=== PATIENT | female | born 1990 | race African-American/Black ===

== ENCOUNTER 2021-03-02 16:08 | Outpatient (CLI) | payer OTHER ==
--- NOTE | 2021-03-03 09:24 | Ultrasound Report ---
PROCEDURE: OB First Trimester INDICATIONS: positive test OUTSIDE/PRIOR DATING DATA: Last menstrual period (LMP): 12/12/2020. LMP-based estimated date of delivery (KANIKA): 09/18/2021. First dating scan (date and location): 03/02/2021. Estimated date of delivery (KANIKA) from first dating scan: 09/15/2021. The below data below was generated using the ultrasound KANIKA of 09/15/2021 TECHNIQUE: Real-time scanning was performed of the fetus and maternal pelvic organs, with image documentation. COMPARISON: None FINDINGS: Embryo: Single living intrauterine gestation with estimated sonographic gestational age of approxima tely 11 weeks and 6 days based off crown-rump length measurement of 5.15 cm. Normal yolk sac. No mily gestational hemorrhage. Heart rate: heart rate measured 157 bpm. Measurement variability in dating: +/- 4 weeks by LMP, +/- 7 days by mean sac diameter (use before 6 weeks gestation if crown-rump length not able to be measured), +/- 5 days by crown-rump length (6-12 weeks gestation). Maternal organs: Ovaries are unremarkable with incidentally noted right corpus luteal cyst. Maternal cervix appears unremarkable measuring 3.6 cm in length. IMPRESSION: Single living intrauterine gestation with estimated sonographic gestational age of approximately 11 w eeks and 6 days based off crown-rump length measurements. Estimated date of delivery is approximately 09/15/2021. Recommend continued clinical surveillance and routine second trimester anatomic screening surve y. Reviewed by: Kevin Matta MD on 03/03/2021 9:23 AM PST Approved by: Kevin Matta MD on 03/03/2021 9:23 AM PST Station ID: [id number]
== END 2021-03-02 16:09 | disposition home or self-care (01) ==
LOC: DI 16:08
PROVIDERS: ATTEND Obstetrics & Gynecology
DX: Z32.01 Encounter for pregnancy test, result positive (principal)

== ENCOUNTER 2021-03-11 13:21 | Outpatient (CLI) | payer OTHER | END 2021-03-11 13:22 | disposition home or self-care (01) | LOC: LAB.N 13:21 | PROVIDERS: ATTEND Nurse Practitioner Obstetrics & Gynecology | DX: Z36.8A Encounter for antenatal screening for other genetic defects (principal); Z36.89 Encounter for other specified antenatal screening | CPT/HCPCS: 36415; 81511; 87086 ==

== ENCOUNTER 2021-03-30 08:17 | Outpatient (CLI) | payer OTHER ==
[2021-04-01 12:37] LABS: AFP MOM 1.13; AGE RISK DOWN SYNDROME 1 IN 443; CALC'D GESTATIONAL AGE 15.4 weeks; CIGARETTE SMOKER? NOT GIVEN; DONOR AGE: EGG RETRIEVAL NOT GIVEN; DONOR EGG NO; ESTRIOL MOM 1.74; HCG MOM 0.65; HX OF NEURAL TUBE DEFECTS NO; INHIBIN A MOM 1.08; INSULIN DEPEND DIABETIC NO; MATERNAL WEIGHT 211 lbs; MSS DOWN SYNDROME RISK <1 IN 5000; MSS3 TRISOMY 18 RISK <1 IN 5000; NUMBER OF FETUSES 1; PREV PREGNANCY DOWN SYND NO; RISK FOR ONTD <1 IN 5000
== END 2021-03-30 08:18 | disposition home or self-care (01) ==
LOC: LAB.N 08:17
PROVIDERS: ATTEND Nurse Practitioner Obstetrics & Gynecology
DX: Z36.89 Encounter for other specified antenatal screening (principal)
CPT/HCPCS: 81511

== ENCOUNTER 2021-04-20 12:54 | Outpatient (CLI) | payer OTHER ==
[2021-04-20 19:30] LABS: BASOPHILS % (AUTO) 0.2 %; EOSINOPHILS # (AUTO) 0.1 10^3/uL (0.0-0.7); EOSINOPHILS % (AUTO) 1.5 %; HCT - HEMATOCRIT 38.5 % (37.0-47.0); HGB - HEMOGLOBIN 12.8 g/dL (12.0-16.0); LYMPHOCYTES # (AUTO) 1.6 10^3/uL (1.5-3.5); LYMPHOCYTES % (AUTO) 19.5 %; MEAN CORPUSCULAR HEMOGLOBIN 31.8 pg (27.0-31.0); MEAN CORPUSCULAR HGB CONC 33.2 g/dL (32.0-36.0); MEAN CORPUSCULAR VOLUME 95.8 fL (81.0-99.0); MEAN PLATELET VOLUME 11.8 fL (7.9-10.8); MONOCYTES # (AUTO) 0.5 10^3/uL (0.0-1.0); MONOCYTES % (AUTO) 6.2 %; NEUTROPHILS # (AUTO) 5.8 10^3/uL (1.5-6.6); PLT - PLATELET COUNT 178 10^3/uL (130-450); RED BLOOD COUNT 4.02 10^6/uL (4.20-5.40); WHITE BLOOD COUNT 8.1 x10^3/uL (4.8-10.8)
[2021-04-21 10:32] LABS: HEPATITIS B SURFACE ANTIGEN NON-REACTIVE (NON-REACTIVE)
[2021-04-21 10:37] LABS: HEPATITIS C ANTIBODY NON-REACTIVE (NON-REACTIVE)
[2021-04-21 13:46] LABS: HIV AG/AB 4TH GEN NON-REACTIVE (NON-REACTIVE)
== END 2021-04-20 12:55 | disposition home or self-care (01) ==
LOC: LAB.N 12:54
PROVIDERS: ATTEND Obstetrics & Gynecology
DX: Z36.89 Encounter for other specified antenatal screening (principal)
CPT/HCPCS: 36415; 85025; 86592; 86762; 86787; 86803; 86850; 86900; 86901; 87340; 87389

== ENCOUNTER 2021-05-04 15:29 | Outpatient (CLI) | payer OTHER ==
--- NOTE | 2021-05-05 10:22 | Ultrasound Report ---
PROCEDURE: OB Detailed Eval INDICATIONS: SUPERVISION OF NORMAL OUTSIDE/PRIOR DATING DATA: Last menstrual period (LMP): 12/12/2020. LMP-based estimated date of delivery (KANIKA): 09/18/2021. First dating scan (date and location): 02/28. Estimated date of delivery (KANIKA) from first dating scan: 09/15/2021. The below data below was generated using the ultrasound KANIKA of 09/15/2021 TECHNIQUE: Real-time scanning was performed of the fetus, with image documentation and biometric measurements. Endovaginal scanning: Performed COMPARISON: None. FINDINGS: General: A single living intrauterine gestation is present. Presentation: Breech Placenta: Placental position is anterior, without previa. Amniotic fluid index: 19.7 cm, normal 5-24 cm. Largest amniotic fluid pocket 6.3 cm. heart rate: 135 beats per minute. Maternal cervical canal: Closed and 4.2 cm long; normal length is 2.5 cm or more. biometrics: Biparietal diameter: 20 weeks 3 days Head circumference: 20 weeks 6 days Abdominal circumference: 21 weeks 5 days Femur length: 21 weeks 3 days Estimated gestational age from initial scan: 20 weeks 6 days. Composite gestational age from present scan: 21 weeks 1 day Estimated weight and percentile: 4295 g; 80th percentile Measurement variability in biometric dating: +/- 10 days from 12-20 weeks gestation, +/- 2 weeks from 20-30 weeks gestation, +/- 3 weeks at 30 weeks gestation or later. Anatomic survey: Neuro: Ventricles are normal at less than 10 mm. Cisterna magna is normal at 3-11 mm. Cerebellum i s normal in size and morphology. Nuchal skin fold: Normal at less than 6 mm between 14 and 20 weeks gestational age. Face: Nose and lips, facial profile are normal. Spine: Not well seen due to position. Heart: 4-chambered heart is present, with normal ventricular outflow tracts. Diaphragm: Diaphragm is intact. Stomach: Left-sided stomach is present. Kidneys: No hydronephrosis. Normal is less than 5 mm in 2nd trimester, less than 7 mm in 3rd trimester. Cord: 3 vessel cord has orthotopic insertion. Bladder: Normal in size. Extremities: Upper extremities well visualized. feet poorly visualized due to position.. IMPRESSION: 1. Single living intrauterine with appropriate interval growth. 2. Poor visualization of the spine and feet due to position. Otherwise, normal karla omic survey. Reviewed by: Jesenia Kimble MD, PhD on 05/05/2021 10:20 AM [facility] Approved by: Jesenia Kimble MD, PhD on 05/05/2021 10:20 AM [facility] Station ID: [id number]
== END 2021-05-04 15:30 | disposition home or self-care (01) ==
LOC: DI 15:29
PROVIDERS: ATTEND Nurse Practitioner Obstetrics & Gynecology
DX: Z34.92 Encounter for supervision of normal pregnancy, unspecified, second trimester (principal); Z3A.21 21 weeks gestation of pregnancy

== ENCOUNTER 2021-05-25 15:38 | Outpatient (CLI) | payer OTHER ==
--- NOTE | 2021-05-25 17:14 | Ultrasound Report ---
PROCEDURE: OB F/U or Repeat INDICATIONS: SUPERVISION OF OUTSIDE/PRIOR DATING DATA: Last menstrual period (LMP): December 12, 2020. LMP-based estimated date of delivery (KANIKA): September 18, 2021. First dating scan (date ): March 02, 2021. Estimated date of delivery (KANIKA) from first dating scan: September 15, 2021. TECHNIQUE: Real-time scanning was performed of the fetus, with image documentation and biometric measurements. COMPARISON: May 04, 2021 FINDINGS: General: A single living intrauterine gestation is present. Presentation: Cephalic Placenta: Placental position is anterior, without previa. Amniotic fluid index: 14.6 cm, appropriate for gestational age. heart rate: 164 beats per minute. Maternal cervical canal: 4.1 cm long; normal length is 2.5 cm or more. anatomy: Spine: Normal. Chest/diaphragm: Normal Stomach: Normal Lower extremities: Normal Other: Not applicable. IMPRESSION: Single intrauterine gestation as detailed above. Reviewed by: Edgar Hinojosa MD on 05/25/2021 5:13 PM PST Approved by: Edgar Hinojosa MD on 05/25/2021 5:13 PM PST Station ID: [id number]
== END 2021-05-25 15:39 | disposition home or self-care (01) ==
LOC: DI 15:38
PROVIDERS: ATTEND Nurse Practitioner Obstetrics & Gynecology
DX: Z34.90 Encounter for supervision of normal pregnancy, unspecified, unspecified trimester (principal); Z36.89 Encounter for other specified antenatal screening

== ENCOUNTER 2021-07-10 08:59 | Outpatient (CLI) | payer OTHER ==
[2021-07-10 11:56] LABS: HCT - HEMATOCRIT 38.3 % (37.0-47.0); HGB - HEMOGLOBIN 13.1 g/dL (12.0-16.0); MEAN CORPUSCULAR HEMOGLOBIN 32.5 pg (27.0-31.0); MEAN CORPUSCULAR HGB CONC 34.2 g/dL (32.0-36.0); RED BLOOD COUNT 4.03 10^6/uL (4.20-5.40); RED CELL DISTRIBUTION WIDTH 13.4 % (12.0-15.0)
== END 2021-07-10 09:00 | disposition home or self-care (01) ==
LOC: LAB.N 08:59
PROVIDERS: ATTEND Nurse Practitioner Obstetrics & Gynecology
DX: Z36.9 Encounter for antenatal screening, unspecified (principal)
CPT/HCPCS: 36415; 82950; 85027

== ENCOUNTER 2021-07-20 08:00 | Outpatient (CLI) | payer OTHER ==
[2021-07-20 09:41] LABS: BASOPHILS % (AUTO) 0.1 %; EOSINOPHILS # (AUTO) 0.1 10^3/uL (0.0-0.7); HGB - HEMOGLOBIN 12.7 g/dL (12.0-16.0); LYMPHOCYTES # (AUTO) 1.3 10^3/uL (1.5-3.5); LYMPHOCYTES % (AUTO) 15.1 %; MEAN CORPUSCULAR HEMOGLOBIN 31.9 pg (27.0-31.0); MEAN CORPUSCULAR HGB CONC 34.3 g/dL (32.0-36.0); MEAN PLATELET VOLUME 11.4 fL (7.9-10.8); MONOCYTES # (AUTO) 0.6 10^3/uL (0.0-1.0); MONOCYTES % (AUTO) 6.4 %; NEUTROPHILS # (AUTO) 6.7 10^3/uL (1.5-6.6); NEUTROPHILS % (AUTO) 76.7 %; PLT - PLATELET COUNT 121 10^3/uL (130-450); RED BLOOD COUNT 3.98 10^6/uL (4.20-5.40); RED CELL DISTRIBUTION WIDTH 13.3 % (12.0-15.0); WHITE BLOOD COUNT 8.7 x10^3/uL (4.8-10.8)
[2021-07-20 09:55] LABS: GTT GLUCOSE,FASTING 104 mg/dL (70-100)
== END 2021-07-20 23:59 | disposition home or self-care (01) ==
LOC: LAB 08:00
PROVIDERS: ATTEND Obstetrics & Gynecology
DX: O99.815 Abnormal glucose complicating the puerperium (principal); O99.119 Other diseases of the blood and blood-forming organs and certain disorders involving the immune mechanism complicating pregnancy, unspecified trimester; D69.6 Thrombocytopenia, unspecified
CPT/HCPCS: 36415; 81599; 82951; 82952; 83020; 85014; 85018; 85025; 85041